=== PATIENT | female | born 1985 | race Caucasian/White ===

== ENCOUNTER 2019-07-16 13:32 | Outpatient (CLI) | payer OTHER, SELFPAY ==
--- NOTE | ~2019-07-16 | US_ITS ---
EXAMINATION: US OB /maternal detail DATE: 07/16/2019 14:31 INDICATION: TECHNIQUE: Multiple obstetric sonographic images performed. FINDINGS: There is a single living fetus in vertex presentation. The placenta is anterior and low-lying with c audal margin 0.7 cm from the internal cervical os. Cervical length measures approximately 4.3 cm whic h is normal.. Normal amniotic fluid volume. KATHRYN measures cm. heart rate of 155 beats per minut e. The following anatomy was identified as normal: Ventricles, choroid plexus, falx and cava septum pellucidum Cerebellum and cisterna magna Nuchal fold Upper lip Spine Heart Diaphragm Stomach Kidneys Bladder 3 vessel cord and cord insertion Bilateral upper and lower extremities including hands and feet The following biometric data were obtained: BPD: 4.6 cm -> 19 weeks 6 days Head circumference: 17.4 cm -> 19 weeks 6 days Abdominal circumference: 14.8 cm -> 20 weeks 0 days Femur length: 3.4 cm -> 20 weeks 6 days These measurements are concordant. Head circumference to abdominal circumference ratio: 1.18 (normal range 1.07-1.25). Estimated weight: 347 g (+/-) 52 g. or 12 oz. (+/-) 2 oz. IMPRESSION: 1. Single living fetus with vertex presentation with heart rate of 155 bpm. 2. Gestational age by ultrasound of 20 weeks 1 day(s) (+/-) 1 week 3 day(s) with ultrasound estimat ed date of delivery (CATE) of 12/02/2019. Estimated weight is 56th percentile by Hadlock criteria when 12/02/2019 is used as the CATE. Please correlate with clinical information or earlier ultrasounds f or most accurate CATE. 3. Normal survey. Reviewed, dictated and finalized at location A. IMPRESSION: 1. Single living fetus with vertex presentation with heart rate of 155 b pm. 2. Gestational age by ultrasound of 20 weeks 1 day(s) (+/-) 1 week 3 day(s) w ith ultrasound estimated date of delivery (CATE) of 12/02/2019. Estimated we ight is 56th percentile by Hadlock criteria when 12/02/2019 is used as the CATE. P lease correlate with clinical information or earlier ultrasounds for most accur ate CATE. 3. Normal survey.
== END 2019-07-16 13:33 | disposition home or self-care (01) ==
PROVIDERS: Visit Provider Obstetrics & Gynecology
DX: Z36.89 Encounter for other specified antenatal screening (principal); Z3A.20 20 weeks gestation of pregnancy
CPT/HCPCS: 76805

== ENCOUNTER 2019-11-18 16:22 | Outpatient (CLI) | payer OTHER, SELFPAY ==
--- NOTE | ~2019-11-18 | US_ITS ---
US OB limited 11/18/2019 17:03 Indication: Malpresentation. Evaluate lie. Scheduled for . Procedure: Real-time Limited obstetrical ultrasound Comparison: 07/16/2019 Findings: There is a single living intrauterine in transverse left presentation. hear t rate is 142 BPM. Placenta is anterior without previa. Amniotic fluid is subjectively normal. Impression: 1: Single living intrauterine in transverse left presentation. Reviewed, dictated and finalized at location A. Impression: 1: Single living intrauterine in transverse left presentation.
== END 2019-11-18 16:23 | disposition home or self-care (01) ==
PROVIDERS: Visit Provider Obstetrics & Gynecology
DX: O32.9XX0 Maternal care for malpresentation of fetus, unspecified, not applicable or unspecified (principal); Z3A.00 Weeks of gestation of pregnancy not specified
CPT/HCPCS: 76815

== ENCOUNTER 2019-11-26 13:36 | Outpatient (CLI) | payer OTHER, SELFPAY ==
[2019-11-26 14:28] LABS: Hematocrit 35.5 % (37.0-47.0); Hemoglobin 12.6 g/dL (12.0-15.0); Mean Corpuscular HGB Conc 35.5 g/dl (32-36); Mean Corpuscular Volume 84.5 fl (80-100); Mean Platelet Volume 9.8 fl (7.4-10.4); Platelet Count Result 253 k/mm3 (150-375); Red Cell Distribution Width 13.5 % (11.5-14.5); White Blood Count 10.1 K/mm3 (4.5-10.0)
[2019-11-26 15:23] LABS: HIV 1/2 Ab P24 Ag Result Negative (Negative)
[2019-11-27 07:16] LABS: Rapid Plasma Reagin Non-Reactive (NonReactive)
== END 2019-11-26 13:37 | disposition home or self-care (01) ==
LOC: ANHLAB 13:38
PROVIDERS: PCP Obstetrics & Gynecology; Visit Provider Obstetrics & Gynecology
DX: Z33.1 Pregnant state, incidental (principal)
CPT/HCPCS: 36415; 85027; 86592; 86703; 86850; 86900; 86901; G0432

== ENCOUNTER 2019-11-27 08:32 | Inpatient (IN) | payer OTHER, SELFPAY ==
[2019-11-27] VITALS (61 sets, daily range): BP systolic 84–121; BP diastolic 28–85; PULSE 66–144; RESP 14–18; TEMP 36.4–36.9; O2SAT 97–100; BMI 39.5
[2019-11-27] MEDS: LACTATED RINGERS 1,000 ML 125 ML IV CONT (09:14)
--- NOTE | 2019-11-27 09:22 | LDADM ---
This patient, Lia Cruz, was admitted to Labor/Delivery/Recovery 120 on 11/27/19 at 08:32. Plans for labor, pain management and were discussed with patient. Patient/family oriented to hospital policies and general routines including ID bracelet, bed and alarms, visiting hours, pain management, procedures, bathroom and other care routines, personal items, smoking policy, room service/diet and guest tray routines, infant security routines, and visiting hours. Patient/Family are encouraged to report perceived risks to care and to ask questions if they do not understand what they are told or what they should do. See OBIX for further documentation.
--- NOTE | 2019-11-27 09:53 | PM.IMHP ---
H&P: HPI History of Present Illness Date/Time: 11/27/19 09:53 Chief complaint: C Section Narrative: Lia Cruz is a 34 yo female, , 38.1 w MTHFR, HSV , h/o sab presents for primary c section for malpresentation Review of Systems Review of Systems: All systems reviewed & are unremarkable except as noted in HPI and below Constitutional: Constitutional: Reports no additional constitutional complaints Eyes: Eyes: Reports no additional eye complaints ENT: Reports system reviewed and no additional complaints, except as documented Cardiovascular: Cardiovascular: Reports no additional cardiovascular complaints Respiratory: Respiratory: Reports no additional respiratory complaints Gastrointestinal: Gastrointestinal: Reports no additional gastrointestinal complaints Genitourinary: Genitourinary: Reports no additional female genitourinary complaints Musculoskeletal: Musculoskeletal: Reports no additional musculoskeletal complaints Integumentary/Breasts: Skin/Breast: Reports system reviewed and no additional complaints, except as docu Neurologic: Reports system reviewed and no additional complaints, except as documented Psychiatric: Psychiatric: Reports no additional psychiatric complaints Endocrine: Endocrine: Reports no additional endocrine complaints Hematologic/Lymphatic: Hematologic/Lymphatic: Reports no additional hematologic/lymphatic complaints Allergic/Immunologic: Allergic/Immunologic: Reports no additional allergic/immunologic complaints [facility] Past Medical History Medical History (Updated 11/27/19 @ 10:09 by Harshad Campos MD) malpresentation KASH (generalized anxiety disorder) Heterozygous MTHFR mutation [id number] History of miscarriage HSV (herpes simplex virus) infection Vaginal delivery 07-21-2010, 39.5 wks 1. M, 6lbs 15oz, Vaginal Surgical History Surgical History (Updated 11/27/19 @ 10:09 by Harshad Campos MD) History of dilatation and curettage Missed 8.6 weeks 2018 Family History Family History Father Diabetes mellitus Heart valve problem Grandparent Diabetes mellitus Social History Social History (Updated 11/27/19 @ 10:03 by Harshad Campos MD) Smoking packs per day: 1 Smoking cigarettes per day: 20.0 Years smoked: 2 Smoking pack-years: 2.00 Smoking status: Former smoker Tobacco type: cigarettes Second hand tobacco smoke exposure: No Alcohol intake: former Substance use: former Substance use type: marijuana Living arrangements: with family Occupation/Education: unemployed Gender identity (if verbalized by the patient): Female Sexual Orientation (if Verbalized by the Patient): Straight or Heterosexual Spiritual care concerns: No Agree to blood products: Yes Meds Home Medications and Allergies Home Medications Medication Instructions Recorded Confirmed Type PNV cmb#95-ferrous fumarate-FA 1 tablet PO DAILY 11/02/19 11/02/19 History [] acyclovir 800 mg PO DAILY 11/02/19 11/02/19 History aspirin [Aspirin Low Dose] 81 mg PO DAILY 11/02/19 11/02/19 History calcium carbonate [Calcium 600] 600 mg PO BID 11/02/19 11/02/19 History folic acid 1 mg PO QID 11/02/19 11/02/19 History progesterone 200 mg PO BID 11/02/19 11/02/19 History famotidine 20 mg PO BID 11/27/19 11/27/19 History hydroxyzine HCl 25 mg PO TID PRN 11/27/19 11/27/19 History Allergies Allergy/AdvReac Type Severity Reaction Status Date / Time No Known Allergies Allergy Verified 11/02/19 13:38 Vital Signs Vital Signs - 24 hr 11/27/19 09:02 11/27/19 09:16 11/27/19 09:31 Pulse Rate 100 109 H 87 Blood Pressure 108/85 104/75 118/75 11/27/19 09:42 Pulse Rate 99 Blood Pressure 112/77 Exam Const: General: no acute distress HENMT: Ears: TM's normal bilaterally General nose exam: Normal nares present Mouth: Yes moist mucous membranes Eyes: Gen
--- NOTE | 2019-11-27 10:07 | WPDANESEPPF ---
Anes - Initial Pre Proc Eval Procedure: Operation Date: 11/27/19 10:30 Proposed Procedures p Primary Section Low Transverse - Harshad Campos MD Date/Time: 11/27/19 10:07 Surgeon: Harshad Campos MD Pre Op Diagnosis: C Section Patient Data Age: 34 Gender: F Height: 5 ft Weight: 91.8 kg Last Vital Signs Temp 36.9 C 11/27/19 09:57 Pulse 99 11/27/19 09:42 BP 112/77 11/27/19 09:42 Allergies Allergy/AdvReac Type Severity Reaction Status Date / Time No Known Allergies Allergy Verified 11/02/19 13:38 Home Medications Medication Instructions Recorded Confirmed Type PNV cmb#95-ferrous fumarate-FA 1 tablet PO DAILY 11/02/19 11/02/19 History [] acyclovir 800 mg PO DAILY 11/02/19 11/02/19 History aspirin [Aspirin Low Dose] 81 mg PO DAILY 11/02/19 11/02/19 History calcium carbonate [Calcium 600] 600 mg PO BID 11/02/19 11/02/19 History folic acid 1 mg PO QID 11/02/19 11/02/19 History progesterone 200 mg PO BID 11/02/19 11/02/19 History famotidine 20 mg PO BID 11/27/19 11/27/19 History hydroxyzine HCl 25 mg PO TID PRN 11/27/19 11/27/19 History Patient hx anesthesia problems: none Family hx anesthesia problems: none PMFSH Past Medical History Medical History malpresentation KASH (generalized anxiety disorder) Heterozygous MTHFR mutation [id number] History of miscarriage HSV (herpes simplex virus) infection Surgical History Surgical History History of dilatation and curettage Missed 12 weeks 2018 Family History Family History Father Diabetes mellitus Heart valve problem Grandparent Diabetes mellitus Social History Social History Smoking packs per day: 1 Smoking cigarettes per day: 20.0 Years smoked: 2 Smoking pack-years: 2.00 Smoking status: Former smoker Tobacco type: cigarettes Second hand tobacco smoke exposure: No Alcohol intake: former Substance use: former Substance use type: marijuana Living arrangements: with family Occupation/Education: unemployed Gender identity (if verbalized by the patient): Female Sexual Orientation (if Verbalized by the Patient): Straight or Heterosexual Spiritual care concerns: No Agree to blood products: Yes Anes - Eval Final PreProcedure Day of Procedure 11/27/19 10:07 Patient weight: obese Heart: regular rate and rhythm Lungs: clear to auscultation Airway: Mallampati scale class II Neurological: alert and oriented Last oral intake: >/= 8 hours ASA classification: II Emergent: no Anesthetic plan: proceed Anesthesia type and monitoring: regional spinal and standard monitoring Informed Consent: The patient's anesthetic plan and its attendant risks and benefits were discussed with the patient/family/POA. Questions were solicited and answers provided to the satisfaction of the patient/family/POA.
--- NOTE | 2019-11-27 10:10 | WPDHPUPDATE1 ---
History and Physical Update Update Date/Time: 11/27/19 10:10 History and Physical has been reviewed, including an updated exam of the patient. There are NO changes in the patient's condition. Risks, benefits, and alternatives have been discussed and questions answered. Patient agrees to proceed with procedure.
--- NOTE | 2019-11-27 10:10 | WPDOBADMIT ---
Obstetrics - Admit Note Admission Note: record reviewed. No pertinent additions to the history and/or any subsequent changes in the physical findings that are not consistent with the expected course of the were found. Additions to the history and/or subsequent changes in the physical findings follow. None. 34 yo female, , 38.1 w MTHFR, ACTIVE HSV on antivral, Malpresentation , h/o sab presents for Primary Low Transverse C section under spinal anesthesia Informed consent obtained
--- NOTE | 2019-11-27 11:33 | PM.OBPRVD ---
OB - Delivery Note Procedure Procedure: Procedures Operation Date: 11/27/19 10:30 Primary Low Transverse C section with delivery of viable female and placenta events: Oligohydramnios, Foul Smelling Amniotic Fluid and Low Fluid Volume in Amniotic Sac Intrapartal events: Chorioamnionitis, Abnormal Presentation and Sexually Transmitted Infection (active herpes) Delivery monitor: external FHT and external uterine Route of delivery: (primary low transverse) Specimen: Yes (placenta) Estimated blood loss (mL): 730 Anesthesia type: Spinal Disposition: floor Complications: none antibiotics --ancef, gentamicin and cleocin counts correct Baby Date of : 11/27/19 Time of : 10:43 Weeks of gestation at delivery: 39 Infant gender: Female Weight (pounds): 6 Weight (ounces): 5 presentation: transverse position: Transverse Placenta delivery description: Manual Removal and Normal Configuration (no fluid short cord chorioamnionitis) cord vessel description: 3 Vessels (SHORT CORD) score one minute: 8 score five minutes: 9
[2019-11-27] MEDS: OXYTOCIN 30 UNITS/NS 500 ML 30 UNITS/500 ML BAG 125 UNITS IV CONT (12:00)
[2019-11-27] MEDS: CLINDAMYCIN 900 MG/NS 50 ML 900 MG/50 ML PIGGYBACK 50 MG IVPB ×2 (13:09→22:36)
[2019-11-27 13:55] LABS: Amphetamine Screen Urine Negative (Negative); Barbiturate Screen Urine Negative (Negative); Benzodiazepines Screen Urine Negative (Negative); Cannabinoid Screen Urine Negative (Negative); Cocaine Screen Urine Negative (Negative); Methadone Screen Urine Negative (Negative); Opiate Screen Urine Negative (Negative); Phencyclidine Screen Urine Negative (Negative)
[2019-11-27] MEDS: KETOROLAC 30 MG/ML VIAL (*BKC) IV PUSH ×2 (14:23→20:21)
--- NOTE | 2019-11-27 16:15 | PM.PROC ---
Procedure Note - Detailed Date of procedure: 11/27/19 Pre-op diagnosis: C Section term malpresentation genital herpes active heterozygous MTHFR generalized anxiety disorder elective section Post-op diagnosis: other ( oligohydramnios and chorioamnionitis with short umbilical cord) Procedure performed: primary low-transverse section with delivery of viable female infant and placenta Description of procedure: informed consent was obtained and the patient was taken to the operating room were spinal anesthetic with Duramorph was given. A Burris catheter was inserted in the abdomen was then prepped and draped in the usual sterile fashion and a time-out was performed. A Pfannenstiel incision was made in the skin in the abdomen was opened in layers hemostasis was obtained with cauterization. The fascia was entered bilateral and extended inferior and superior. The rectus muscles were in the midline and the peritoneum was entered with electrocautery. A transverse incision was made to the uterus and upon entry to the uterine cavity the placenta was identified with no amniotic fluid the baby was repositioned and the vertex was then delivered via the abdominal incision with a Putrid odor being noted consistent with chorioamnionitis. I started the patient on additional antibiotics gentamicin 2 milligrams/kilogram and clindamycin 900 mg in addition to the Ancef given for surgery. The baby was born at 10:43 a.m. with scores of 8 and 9 of viable female weighing 6 lb 5 oz and 19 in long taken to the nursery. The placenta was delivered and sent to pathology. The uterus was irrigated and the uterine incision was then repaired in 2 layers with 0 Vicryl in a running interlocking fashion the 2nd being an imbricating stitch after blood clots and membranes removed from the intrauterine cavity following 10 units of Pitocin given into the myometrium and intravenous Pitocin to allow the uterus to contract well. Blood and clots membranes removed from the intra-abdominal cavity with irrigation and then the sponge needle and instrument count correct the anterior peritoneum and rectus muscles were reapproximated with 0 Vicryl suture in a running fashion. The fascia was then closed with 2. Quill S RS system bilateral. Link's fascia reapproximated 3 0 plain in a running fashion and the skin was closed with absorbable kinjal the device spelled INSORB. Dermabond was used to the skin and a Aquacel dressing was placed over the incision the patient was then taken to the recovery room in stable condition and tolerated the procedure well Anesthesia: spinal ( Duramorph) Surgeon: Harshad Campos MD Fire Control Technician B: neurosurgical physician assistant Estimated blood loss (mL): 730 IV fluids (mL): 1,500 Urine output (mL): 300 Drains: No Packing: No Pathology: yes ( placenta) Complications: None Condition: stable Disposition: floor Findings: chorioamnionitis with oligohydramnios and short umbilical cord viable female Apgars 8 and 9 weight 6 lb 5 oz and 19 in long born at 10:43 a.m. normal uterus tubes and ovaries VTE prevention SCDs antibiotics triples
--- NOTE | 2019-11-27 16:25 | PM.OBDSVD ---
DS: Admitting Diagnosis Admitting Diagnosis Admitting Diagnosis: elective primary C Section term malpresentation heterozygous MTHFR active general herpes generalized anxiety disorder DS: Discharge Diagnosis Discharge Diagnosis (1) Term delivered: Code(s): O80 - Encounter for full-term uncomplicated delivery Status: Acute (2) malpresentation: Code(s): O32.9XX0 - Maternal care for malpresentation of fetus, unspecified, not applicable or unspecified Status: Acute (3) Term : Code(s): Z34.90 - Encounter for supervision of normal , unspecified, unspecified trimester Status: Acute (4) History of dilatation and curettage: Code(s): Z98.890 - Other specified postprocedural states Status: Acute (5) History of miscarriage: Code(s): Z87.59 - Personal history of other complications of , childbirth and the puerperium Status: Acute (6) HSV (herpes simplex virus) infection: Code(s): B00.9 - Herpesviral infection, unspecified Status: Acute (7) KASH (generalized anxiety disorder): Code(s): F41.1 - Generalized anxiety disorder Status: Acute (8) Heterozygous MTHFR mutation [id number]: Code(s): E72.12 - Methylenetetrahydrofolate reductase deficiency Status: Acute OB - DS: Summary Hospital Course Time spent discussing smoking cessation with patient: 3 to 10 minutes OB Procedures : Ultrasound OB Procedures Intrapartum: ( primary low transverse) low cervical, transverse OB Procedures: : Antibiotics Peripartum Data Infant Delivery Method: Section Procedures: Procedures Operation Date: 11/27/19 10:30 Actual Procedures Side Surgeon p Section Harshad Campos MD complications: none and other [place] 1: Gender: Female Disposition of : home Status at Discharge Functional status at discharge: independent ambulation Overall status at discharge: patient is back to baseline Time Spent with Patient Time attestation: Total time spent providing and/or coordinating discharge services: Time spent: Less than 30 minutes Exam Const: General: comfortable, no acute distress, alert and awake Orientation/consciousness: patient oriented x3 Limitations: no limitations Chest: Breast/axilla inspection: normal inspection of the breasts Breast/axilla palpation: normal palpation of the breasts Resp: Effort & Inspection: normal respiratory effort Auscultation: clear to auscultation bilaterally Cardio: Rate: regular rate GI: Inspection: normal to inspection and incision ( dressing dry and intact) GI Palp: Yes Soft to palpation Percussion: Yes normal to percussion Auscultation: normal bowel sounds Rectal Exam: deferred : General: Yes bladder normal to inspection Psych: Appearance: grossly normal Mental Status: mental status grossly normal Affect: normal affect Attitude: cooperative Thought content: Yes Normal thought content present Judgement: Good judgement present (Psych) DS: Data Data Completed and Pending Pending studies at discharge: Pending at discharge 11/27/19 10:44 Surgical [PTH] Routine Labs on day of discharge: Labs from last 24 hours 11/27/19 13:25 Urine Opiates Screen Negative Urine Methadone Screen Negative Ur Barbiturates Screen Negative Ur Phencyclidine Scrn Negative Ur Amphetamine Screen Negative U Benzodiazepines Scrn Negative Urine Cocaine Screen Negative U Cannabinoids Screen Negative Discharge Plan Discharge Attending physician on discharge: Harshad Campos Discharging Clinician: Harshad Campos Anticipated Discharge Date/Time: 11/30/19 16:29 Patient Disposition: Home, Self-Care Activity: may shower, no straining and may drive after 2 weeks Diet: as tolerated and regular Wound Care Instructions: follow printed instructions
[2019-11-27] MEDS: DEXTROSE 5%/0.45% SOD CHL 1,000 ML 125 ML IV CONT (16:49)
[2019-11-27] MEDS: SIMETHICONE 80 MG TAB.CHEW PO (17:12)
[2019-11-27] MEDS: DOCUSATE SODIUM 100 MG CAPSULE PO (17:13)
[2019-11-27] MEDS: FAMOTIDINE 20 MG TABLET PO (17:14)
[2019-11-28] VITALS: BP 96/46; PULSE 82; RESP 15; TEMP 36.6; O2SAT 100
[2019-11-28] MEDS: KETOROLAC 30 MG/ML VIAL (*BKC) IV PUSH ×2 (02:24→08:43)
[2019-11-28] MEDS: KCL 20 MEQ/D5/0.45% SOD CHL 1,000 ML 125 ML IV CONT (02:54)
[2019-11-28 04:35] VITALS: BP 91/52; PULSE 73; RESP 14; TEMP 36.7; O2SAT 99
[2019-11-28] MEDS: SIMETHICONE 80 MG TAB.CHEW PO ×3 (05:35→15:46)
[2019-11-28] MEDS: CLINDAMYCIN 900 MG/NS 50 ML 900 MG/50 ML PIGGYBACK 50 MG IVPB (06:53)
[2019-11-28 07:33] LABS: Basophils Percent Auto 0.3 % (0.2-1.2); Eosinophils Absolute Auto 0.3 K/mm3 (0-0.3); Hematocrit 30.3 % (37.0-47.0); Hemoglobin 10.5 g/dL (12.0-15.0); Immature Granulocyte Absolute 0.04 K/mm3 (0.00-0.031); Immature Granulocyte Percent A 0.4 % (0-0.5); Lymphocytes Absolute Auto 1.79 K/mm3 (0.9-3.2); Lymphocytes Percent Auto 18.7 % (18.3-44.2); Mean Corpuscular HGB Conc 34.7 g/dl (32-36); Mean Corpuscular Hemoglobin 29.9 pg (26-34); Mean Corpuscular Volume 86.3 fl (80-100); Mean Platelet Volume 9.9 fl (7.4-10.4); Monocytes Absolute Auto 0.9 K/mm3 (0.1-0.6); Monocytes Percent Auto 9.2 % (2.6-8.5); Neutrophils Absolute Auto 6.5 K/mm3 (1.3-6.7); Neutrophils Percent Auto 68.4 % (45.5-73.1); Platelet Count Result 202 k/mm3 (150-375); Red Blood Count 3.51 M/mm3 (4.2-5.4); Red Cell Distribution Width 13.7 % (11.5-14.5); White Blood Count 9.6 K/mm3 (4.5-10.0)
[2019-11-28] MEDS: MULTIVIT/MIN/PREN/FOL AC/IRON TABLET 1 TAB PO (08:46)
[2019-11-28] MEDS: DOCUSATE SODIUM 100 MG CAPSULE PO ×2 (08:46→18:56)
[2019-11-28] MEDS: FAMOTIDINE 20 MG TABLET PO ×2 (08:47→18:56)
[2019-11-28] MEDS: IBUPROFEN 600 MG TABLET PO ×2 (12:01→18:57)
[2019-11-28 12:15] VITALS: BP 112/57; PULSE 70; RESP 14; TEMP 36.2
--- NOTE | 2019-11-28 14:21 | PM.OBPNVD ---
OB - PN: Subj Subjective Date/time seen: 11/28/19 14:21 POD#1 Lia reports doing better today. She states the pain is present, but controlled with meds. 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 She is tolerating regular diet. She is ambulating. She is voiding and passing gas. She is breast and bottle feeding. She has been on antibiotics for 24 hours. She denies fever, chills, CP, SOB, ARRIAGA, vision changes, N/V, dizziness or palpations. OB - PN: Obj Data Labs CBC & Chem 7: 11/28/19 06:55 Labs: Laboratory Results - last 24 hr 11/28/19 06:55 WBC 9.6 RBC 3.51 L Hgb 10.5 L Hct 30.3 L MCV 86.3 MCH 29.9 MCHC 34.7 RDW 13.7 Plt Count 202 MPV 9.9 Immature Gran % (Auto) 0.4 Neut % (Auto) 68.4 Lymph % (Auto) 18.7 Young % (Auto) 9.2 H Eos % (Auto) 3.0 Baso % (Auto) 0.3 Lymph # (Auto) 1.79 Young # (Auto) 0.9 H Eos # (Auto) 0.3 Baso # (Auto) 0.0 Abs Immat Gran (auto) 0.04 H Absolute Neuts (auto) 6.5 Absolute Nucleated RBC 0.0 Nucleated RBC % 0.0 OB - PN A/P Assessment and Plan (1) HSV (herpes simplex virus) infection: Code(s): B00.9 - Herpesviral infection, unspecified Status: Acute (2) Chorioamnionitis, delivered, current hospitalization: Code(s): O41.1290 - Chorioamnionitis, unspecified trimester, not applicable or unspecified Status: Acute (3) S/P section: Code(s): Z98.891 - History of uterine scar from previous surgery Status: Acute Plan day: 1 Plan: routine care Comments: - abx d/c'ed after 24 hours; afebrile, nontender -- will monitor for minimum 24hrs after discontinuation - continue acyclovir - poss d/c home tomorrow Time Spent With Patient Time: Total time spent is greater than 50% in coordination of care (as documented) at patient's floor/unit and/or counseling patient: Review of Systems Review of Systems: All systems reviewed & are unremarkable except as noted in HPI and below (HPI) Exam Const: General: comfortable, no acute distress, alert and awake Orientation/consciousness: patient oriented x3 Resp: Effort & Inspection: normal respiratory effort Auscultation: clear to auscultation bilaterally Cardio: Rate: regular rate GI: Auscultation: normal bowel sounds Other: non-distended, soft, appropriately tender, pfannstiel incision covered with dressing : Other: fundus firm below umbilicus Psych: Appearance: grossly normal Affect: normal affect Attitude: cooperative
--- NOTE | 2019-11-28 14:53 | WPDANLDPN2 ---
Anes-Prog Note L&D Date/Time: 11/28/19 14:53 Comfortable throughout: section Neuraxial method: spinal Epidural/Spinal procedure site: clean & non-tender Neuro status: Neuro function grossly intact. Cardiovascular status: normal Respiratory status: normal Airway patency: baseline Mental status: baseline Post-Op hydration status: normal Vital Signs: Last Vital Signs Temp 36.2 C L 11/28/19 12:15 Pulse 70 11/28/19 12:15 Resp 14 11/28/19 12:15 BP 112/57 L 11/28/19 12:15 Pulse Ox 99 11/28/19 04:35 I/O: Intake & Output 11/27/19 11/28/19 11/28/19 23:59 07:59 15:59 Intake Total 402.25 222.25 Output Total 925 1225 300 Balance -522.75 -1002.75 -300 Post-procedural complaints: none Patient feedback: Patient satisfied with anesthetic care.
--- NOTE | 2019-11-28 14:53 | WPDANLDNPN2 ---
Anes-Prog Note L&D-Neuraxial Date/Time: 11/28/19 14:53 Neuraxial medications: intrathecal PF morphine Opiod-related complaints: none Patient feedback: Patient satisfied with post-operative pain management.
[2019-11-28] MEDS: ACYCLOVIR 400 MG TABLET 800 MG PO (18:56)
[2019-11-28 19:00] VITALS: BP 102/66; PULSE 82; RESP 14; TEMP 36.5; O2SAT 96
[2019-11-29] MEDS: IBUPROFEN 600 MG TABLET PO ×2 (01:00→07:10)
[2019-11-29] MEDS: DOCUSATE SODIUM 100 MG CAPSULE PO (07:09)
[2019-11-29] MEDS: FAMOTIDINE 20 MG TABLET PO (07:09)
[2019-11-29 07:40] VITALS: BP 88/73; PULSE 73; RESP 16; TEMP 36.8; O2SAT 100
[2019-11-29] MEDS: ACYCLOVIR 400 MG TABLET 800 MG PO (08:27)
--- NOTE | 2019-11-29 10:54 | WPDANLDPN2 ---
Anes-Prog Note L&D Date/Time: 11/29/19 10:54 Comfortable throughout: section Neuraxial method: spinal Epidural/Spinal procedure site: clean & non-tender Neuro status: Neuro function grossly intact. Cardiovascular status: normal Respiratory status: normal Airway patency: baseline Mental status: baseline Post-Op hydration status: normal Vital Signs: Last Vital Signs Temp 36.8 C 11/29/19 07:40 Pulse 73 11/29/19 07:40 Resp 16 11/29/19 07:40 BP 88/73 L 11/29/19 07:40 Pulse Ox 100 11/29/19 07:40 Post-procedural complaints: none Patient feedback: Patient satisfied with anesthetic care.
--- NOTE | 2019-11-29 10:54 | WPDANLDNPN2 ---
Anes-Prog Note L&D-Neuraxial Date/Time: 11/29/19 10:54 Neuraxial medications: intrathecal PF morphine Opiod-related complaints: none Patient feedback: Patient satisfied with post-operative pain management.
--- NOTE | 2019-11-29 12:07 | P.PNOB_ITS ---
OB - PN: Subj Subjective Date/time seen: 11/29/19 12:07 POD#2 Lia reports doing well. Pain is controlled, bleeding is light. she is tolerating regular diet. voiding and passing gas. ambulating w/o difficulty. she is bottle feeding. She would like to be discharged home today. no fever, chills, cp, sob, vision changes, n/v, dizziness, or palpitations. OB - PN: Obj Data Labs CBC & Chem 7: 11/28/19 06:55 OB - PN A/P Plan day: 2 Plan: discharge home and follow up 6 weeks (w/ Dr. Campos) Comments: - ER return precautions discussed in detail: abd pain/n/v, bleeding, fever, signs of HTN - pelvic rest, take meds as prescribed Time Spent With Patient Time: Total time spent is greater than 50% in coordination of care (as documented) at patient's floor/unit and/or counseling patient: Review of Systems Review of Systems: All systems reviewed & are unremarkable except as noted in HPI and below (hpi) Exam Const: General: comfortable, no acute distress, alert and awake Or ientation/consciousness: patient oriented x3 Resp: Effort & Inspection: normal respiratory effort Auscultation: clear to auscultation bilaterally Cardio: Rate: regular rate GI: Auscultation: normal bowel sounds Other: nondistended, wearing abdominal binder Psych: Appearance: grossly normal Affect: normal affect Attitude: cooperative
--- NOTE | 2019-11-29 13:17 | PC.NURSE ---
Patient viewed the discharge video Mother & Baby Care, The First Two Weeks . Patient was given the opportunity and encouraged to ask questions. Patient verbalized understanding of information shared and has been given the mother/baby guide for home reference.
[2019-12-01 11:16] VITALS: BP 114/81; PULSE 100; RESP 20; TEMP 37.3; O2SAT 99
== END 2019-11-29 14:14 | disposition home or self-care (01) | DRG 540 ==
LOC: ANHLDR 08:38 → ANHOB2 14:04
PROVIDERS: Admitting Provider Obstetrics & Gynecology; Visit Provider Obstetrics & Gynecology
PROC: 10D00Z1 Extraction of Products of Conception, Low, Open Approach (ICD-10-PCS; CPT 59514; principal; 2019-11-27 10:30)
DX: O32.9XX0 Maternal care for malpresentation of fetus, unspecified, not applicable or unspecified (principal); O41.03X0 Oligohydramnios, third trimester, not applicable or unspecified; O41.1230 Chorioamnionitis, third trimester, not applicable or unspecified; O32.1XX0 Maternal care for breech presentation, not applicable or unspecified; O98.52 Other viral diseases complicating childbirth; B00.9 Herpesviral infection, unspecified; Z3A.39 39 weeks gestation of pregnancy; Z37.0 Single live birth; E72.12 Methylenetetrahydrofolate reductase deficiency; Z87.891 Personal history of nicotine dependence; O99.214 Obesity complicating childbirth; E66.9 Obesity, unspecified; O69.3XX0 Labor and delivery complicated by short cord, not applicable or unspecified
CPT/HCPCS: 36415; 80307; 85025; 88307; A9270; J0131; J1580; J1885; J2274; J2590; J3010; J3480; J7120